=== PATIENT | male | born 1955 | race African-American/Black ===

== ENCOUNTER 2017-02-08 20:07 | Inpatient (IN) | payer MEDICAID ==
[~2017-02-08] VITALS: Ht 182.9 cm; Wt 94.7 kg
[2017-02-08] MEDS ORDERED: IBUPROFEN 600 MG TAB PO ONE (22:30)
[2017-02-08] MEDS ORDERED: cefTRIAXone SOD 1,000 MG VL IM ONE (22:30)
[2017-02-08] MEDS ORDERED: cefTRIAXone 1GM/50ML D5W 50 ML IV ONE (22:45)
[2017-02-08] MEDS ORDERED: SODIUM CHLORIDE 0.9% 1,000 ML IV ONE (22:45)
[2017-02-08] MEDS ORDERED: InsuLIN REG 1unit/0.01ml Soln (100units/ml) IV ONE (22:45)
[2017-02-08] MEDS ORDERED: HYDROcodone-ACET 5/325MG TAB PO ONE (22:45)
[2017-02-08 23:23] LABS: DEFINITIVE VIEW TRANSMISSION; Hematocrit 44.8 % (41.0-53.0); Hemoglobin 14.4 g/dL (13.5-17.5); Mean Corpuscular Hemoglobin 26.5 pg (28.0-32.0); Mean Corpuscular Hgb Conc. 32.2 g/dL (32.0-36.0); Mean Corpuscular Volume 82.4 fL (80.0-100.0); Mean Platelet Volume 11.1 fL (7.4-10.4); Platelet Count (auto) 152 10^3/uL (140-450); Red Cell Distribution Width 11.9 % (11.6-16.0); SUSPECT VIEW TRANSMISSION; White Blood Cell 9.7 10^3/uL (4.4-10.8)
[2017-02-08 23:32] LABS: Metamyelocytes % 0; Myelocytes % 0; Promyelocytes % 0; Reactive Lymphocytes 0
[2017-02-08 23:37] LABS: Albumin 3.2 g/dL (3.4-5.0); Calcium 8.7 mg/dL (8.5-10.1)
[2017-02-08 23:40] LABS: Bilirubin, Total 0.7 mg/dL (0.2-1.0); Total Protein 8.3 g/dL (6.4-8.2)
[2017-02-09] VITALS (7 sets, daily range): BP systolic 113–154; BP diastolic 67–101
[2017-02-09] MEDS ORDERED: ONDANSETRON HCL 4 MG/2 ML VIAL IV PRN (00:15)
[2017-02-09] MEDS ORDERED: TEMAZEPAM 15 MG CAP PO PRN (00:15)
[2017-02-09] MEDS ORDERED: DEXTROSE (50%) 50ML SYRG IV PRN (00:15)
[2017-02-09 00:25] LABS: Platelet Estimate Adequate
[2017-02-09 00:26] LABS: RBC Morphology Normal
[2017-02-09] MEDS: SODIUM CHLORIDE 0.9% 1,000 ML IV SCH ×2 (01:49→08:30)
[2017-02-09] MEDS: ACCU-CHEK COMFORT CURVE STRIP VI SCH ×4 (06:54→22:37)
[2017-02-09] MEDS: InsuLIN REG 1unit/0.01ml Soln (100units/ml) SC SCH ×4 (06:54→22:49)
[2017-02-09] MEDS: metroNIDAZOLE 500MG/100ML 100 ML IV SCH ×2 (14:36→22:37)
[2017-02-09] MEDS ORDERED: AML5T PO (15:31)
[2017-02-09] MEDS ORDERED: GLYB5TAB8 PO (15:31)
[2017-02-09] MEDS ORDERED: METF-312 PO (15:31)
[2017-02-09 18:03] LABS: Urine Bilirubin Negative (Negative); Urine Blood Negative /uL (Negative); Urine Color Yellow (Yellow); Urine Glucose 4+ mg/dL (Normal); Urine Ketone 1+ (Negative); Urine Mucus FEW (None Seen); Urine Nitrite Negative (Negative); Urine RBC <1 /hpf (0 - 3); Urine Squamous Epithelial Cell FEW /hpf (<5); Urine pH 5.5 (5.0-8.0)
[2017-02-09] MEDS ORDERED: GABA-494 PO (18:55)
[2017-02-09] MEDS ORDERED: CETI10TA93 PO (18:55)
[2017-02-09] MEDS ORDERED: cefTRIAXone 1GM/50ML D5W 50 ML IV SCH (21:00)
[2017-02-10] VITALS (8 sets, daily range): BP systolic 119–156; BP diastolic 62–105
[2017-02-10] MEDS ORDERED: SODIUM CHLORIDE 0.9% 1,000 ML IV SCH (00:10)
[2017-02-10 06:00] LABS: Basophils # (auto) 0 uL; Basophils % (auto) 0.5 % (0.0-2.0); DEFINITIVE VIEW TRANSMISSION; Eosinophils # (auto) 0.3 uL; Eosinophils % (auto) 4.1 % (0.0-7.0); Hematocrit 40.5 % (41.0-53.0); Hemoglobin 13.2 g/dL (13.5-17.5); Lymphocytes # (auto) 1.5 uL; Lymphocytes % (auto) 22.6 % (10.0-50.0); Mean Corpuscular Hemoglobin 26.8 pg (28.0-32.0); Mean Corpuscular Hgb Conc. 32.6 g/dL (32.0-36.0); Mean Corpuscular Volume 82.1 fL (80.0-100.0); Mean Platelet Volume 10.2 fL (7.4-10.4); Monocytes # (auto) 0.8 uL; Monocytes % (auto) 12.4 % (0.0-12.0); Neutrophils # (auto) 4.1 uL; Neutrophils % (auto) 60.4 % (37.0-80.0); Platelet Count (auto) 173 10^3/uL (140-450); Red Cell Distribution Width 12.7 % (11.6-16.0); White Blood Cell 6.8 10^3/uL (4.4-10.8)
[2017-02-10] MEDS: metroNIDAZOLE 500MG/100ML 100 ML IV SCH ×3 (06:02→22:09)
[2017-02-10 06:13] LABS: INR 1.12 (0.9-1.15); Partial Thromboplastin Time 30.1 sec (22.64-33.71); Prothrombin Time 12.1 sec (9.37-12.3)
[2017-02-10 06:31] LABS: Albumin 2.5 g/dL (3.4-5.0); BUN/Creatinine Ratio 13.1; Bilirubin, Total 0.4 mg/dL (0.2-1.0); Calcium 8.3 mg/dL (8.5-10.1); Potassium 3.9 mmol/L (3.5-5.1); Total Protein 7.3 g/dL (6.4-8.2)
[2017-02-10] MEDS: ACCU-CHEK COMFORT CURVE STRIP VI SCH ×4 (06:32→22:28)
[2017-02-10] MEDS: InsuLIN REG 1unit/0.01ml Soln (100units/ml) SC SCH ×4 (06:33→22:34)
[2017-02-10] MEDS ORDERED: ceFAZolin 1GM/50ML D5W 50 ML IV ONE (08:29)
[2017-02-10] MEDS ORDERED: ceFAZolin 1GM VL ONE (09:05)
[2017-02-10] MEDS ORDERED: fentaNYL CITRATE 100 MCG/2 ML VL ONE ×2 (09:29→09:59)
[2017-02-10] MEDS ORDERED: LIDOCAINE HCL 2 %PF INJ 10ML AMP IJ ONE (09:30)
[2017-02-10] MEDS ORDERED: PROPOFOL 10 MG/ML 20 ML IV ONE (09:30)
[2017-02-10] MEDS ORDERED: MIDAZOLAM HCL 1MG/1ML-2 ML VIAL ONE (09:30)
[2017-02-10] MEDS ORDERED: DEXAMETHASONE SOD PHOS 10MG/1ML VIAL INJ ONE (09:30)
[2017-02-10] MEDS ORDERED: KETOROLAC TROMETH 60MG/2ML VIAL IM ONE (09:30)
[2017-02-10] MEDS ORDERED: ONDANSETRON HCL 4 MG/2 ML VIAL ONE (09:30)
[2017-02-10] MEDS ORDERED: GLYCOPYRROLATE 0.2 MG/ML 1ML VIAL ONE (09:30)
[2017-02-10] MEDS ORDERED: HYDROmorphone HCL 2 MG/ML VL IV PRN ×2 (10:45→11:15)
[2017-02-10] MEDS ORDERED: LABETALOL HCL 5 MG/ML 4ML SYRINGE IV PRN (10:45)
[2017-02-10] MEDS ORDERED: ONDANSETRON HCL 4 MG/2 ML VIAL IV ONE (10:45)
[2017-02-10] MEDS ORDERED: HYDROcodone-ACET 5/325MG TAB PO PRN (11:15)
[2017-02-10] MEDS: SODIUM CHLORIDE 0.9% 1,000 ML IV SCH (12:09)
[2017-02-10] MEDS: ceFAZolin 1GM/50ML D5W 50 ML IV SCH ×2 (14:34→22:10)
[2017-02-10] MEDS: HYDROcodone-ACET 5/325MG TAB PO PRN (20:40)
[2017-02-11] MEDS: SODIUM CHLORIDE 0.9% 1,000 ML IV SCH ×2 (04:33→15:41)
[2017-02-11 05:00] VITALS: BP 124/73
[2017-02-11] MEDS: ceFAZolin 1GM/50ML D5W 50 ML IV SCH ×3 (05:54→21:30)
[2017-02-11] MEDS: metroNIDAZOLE 500MG/100ML 100 ML IV SCH ×3 (05:54→22:32)
[2017-02-11] MEDS: ACCU-CHEK COMFORT CURVE STRIP VI SCH ×4 (06:31→21:30)
[2017-02-11] MEDS: InsuLIN REG 1unit/0.01ml Soln (100units/ml) SC SCH ×4 (06:32→21:38)
[2017-02-11 07:12] LABS: Basophils # (auto) 0 uL; Basophils % (auto) 0.1 % (0.0-2.0); DEFINITIVE VIEW TRANSMISSION; Eosinophils # (auto) 0.1 uL; Eosinophils % (auto) 0.9 % (0.0-7.0); Hematocrit 38.3 % (41.0-53.0); Hemoglobin 12.4 g/dL (13.5-17.5); Lymphocytes # (auto) 1.3 uL; Mean Corpuscular Hemoglobin 26.6 pg (28.0-32.0); Mean Corpuscular Hgb Conc. 32.4 g/dL (32.0-36.0); Mean Corpuscular Volume 82.1 fL (80.0-100.0); Mean Platelet Volume 10.4 fL (7.4-10.4); Monocytes # (auto) 0.8 uL; Monocytes % (auto) 9.5 % (0.0-12.0); Neutrophils # (auto) 5.9 uL; Neutrophils % (auto) 73.5 % (37.0-80.0); Platelet Count (auto) 188 10^3/uL (140-450); Red Cell Distribution Width 12.8 % (11.6-16.0)
[2017-02-11 07:36] LABS: Albumin 2.3 g/dL (3.4-5.0); BUN/Creatinine Ratio 15.8; Bilirubin, Total 0.3 mg/dL (0.2-1.0); Calcium 8.2 mg/dL (8.5-10.1); Potassium 4.4 mmol/L (3.5-5.1); Total Protein 6.6 g/dL (6.4-8.2)
[2017-02-11 08:00] VITALS: BP 133/78
[2017-02-11 08:31] VITALS: BP 133/78
[2017-02-11] MEDS: HYDROcodone-ACET 5/325MG TAB PO PRN (10:11)
[2017-02-11 13:18] VITALS: BP 131/77
[2017-02-11 16:31] VITALS: BP 135/75
[2017-02-11] MEDS: metFORMIN HYDROCHLORIDE 500 MG TAB PO SCH (18:33)
[2017-02-11 21:37] VITALS: BP 158/88
[2017-02-12 04:44] VITALS: BP 158/91
[2017-02-12] MEDS: SODIUM CHLORIDE 0.9% 1,000 ML IV SCH ×2 (05:29→21:31)
[2017-02-12] MEDS: ceFAZolin 1GM/50ML D5W 50 ML IV SCH ×3 (05:33→21:34)
[2017-02-12] MEDS: metroNIDAZOLE 500MG/100ML 100 ML IV SCH ×3 (06:23→22:34)
[2017-02-12] MEDS: metFORMIN HYDROCHLORIDE 500 MG TAB PO SCH ×2 (06:33→18:10)
[2017-02-12] MEDS: ACCU-CHEK COMFORT CURVE STRIP VI SCH ×4 (06:33→22:04)
[2017-02-12] MEDS: InsuLIN REG 1unit/0.01ml Soln (100units/ml) SC SCH ×4 (06:35→22:33)
[2017-02-12 07:14] LABS: BUN/Creatinine Ratio 9.7; Calcium 8.3 mg/dL (8.5-10.1); Potassium 4.5 mmol/L (3.5-5.1)
[2017-02-12 09:00] VITALS: BP 155/88
[2017-02-12] MEDS: HYDROcodone-ACET 5/325MG TAB PO PRN (12:05)
[2017-02-12 13:00] VITALS: BP 158/90
[2017-02-12] MEDS: MORPHINE SULF INJ 2 MG/ML SYRINGE 1ML IV PRN ×2 (13:50→19:40)
[2017-02-12 17:00] VITALS: BP 141/94
[2017-02-12 22:00] VITALS: BP 159/101
[2017-02-13 05:00] VITALS: BP 161/94
[2017-02-13] MEDS: ceFAZolin 1GM/50ML D5W 50 ML IV SCH ×2 (05:46→14:00)
[2017-02-13] MEDS: metroNIDAZOLE 500MG/100ML 100 ML IV SCH ×2 (06:26→14:00)
[2017-02-13] MEDS: metFORMIN HYDROCHLORIDE 500 MG TAB PO SCH (06:26)
[2017-02-13] MEDS: ACCU-CHEK COMFORT CURVE STRIP VI SCH ×2 (06:34→11:30)
[2017-02-13] MEDS: InsuLIN REG 1unit/0.01ml Soln (100units/ml) SC SCH ×2 (06:39→11:30)
[2017-02-13 09:00] VITALS: BP 144/79
[2017-02-13] MEDS: SODIUM CHLORIDE 0.9% 1,000 ML IV SCH (10:35)
[2017-02-13 12:09] VITALS: BP 144/79
[2017-02-13 13:00] VITALS: BP 148/93
== END 2017-02-13 14:55 | disposition home or self-care (01) | DRG 364 ==
LOC: ER 20:11 → CENTRAL 20:12
PROVIDERS: ADMIT Emergency Medicine; ATTEND Internal Medicine
PROC: 0J990ZZ Drainage of Buttock Subcutaneous Tissue and Fascia, Open Approach (ICD-10-PCS; 2017-02-10)
PROC: 0JB90ZZ Excision of Buttock Subcutaneous Tissue and Fascia, Open Approach (ICD-10-PCS; principal; 2017-02-10 09:34)
DX: L02.31 Cutaneous abscess of buttock (principal); E43 Unspecified severe protein-calorie malnutrition; E11.65 Type 2 diabetes mellitus with hyperglycemia; I10 Essential (primary) hypertension; Z68.28 Body mass index [BMI] 28.0-28.9, adult; K61.1 Rectal abscess; Z91.19 Patient's noncompliance with other medical treatment and regimen
CPT/HCPCS: 36415; 71010; 80048; 80053; 81001; 82962; 83036; 85007; 85025; 85027; 85610; 85730; 87040; 87070; 87075; 87077; 87186; 87205; 93005; 96365; 96375; J0690; J0696; J1100; J1815; J1885; J2250; J2405; J2704; J3490